=== PATIENT | male | born 1960 | race Caucasian/White ===

== ENCOUNTER 2020-09-21 18:55 | Emergency (ER) | payer OTHER ==
[~2020-09-21] VITALS: Ht 190.5 cm; Wt 87.9 kg
[2020-09-21] MEDS ORDERED: ASPI81TA26 PO (19:31)
[2020-09-21] MEDS ORDERED: METO37.5 PO (19:31)
[2020-09-21] MEDS ORDERED: CRES20TA2 PO (19:31)
[2020-09-21] MEDS ORDERED: ISOS30TA4 PO (19:31)
[2020-09-21] MEDS ORDERED: NS 1,000 ML IV SCH (19:38)
[2020-09-21] MEDS ORDERED: ASPIRIN 81 MG CHEW TABLET PO ONE (19:45)
[2020-09-21] MEDS ORDERED: NITROGLYCERIN 0.4 MG SUBL TABLET SL PRN (19:45)
[2020-09-21 19:48] LABS: BASO % 0.2 % (0.0-1.0); EOS # 0.2 10^3/uL (0.0-0.5); EOS % 3.1 % (0.0-3.0); HEMATOCRIT 44.6 % (42.0-52.0); HEMOGLOBIN 14.8 g/dl (13.5-17.5); LYMPH # 1.8 10^3/uL (1.5-5.0); LYMPH % 34.2 % (24.0-44.0); MEAN CORPUSCULAR HEMOGLOBIN 30.1 pg (27.0-33.0); MEAN CORPUSCULAR HGB CONC 33.2 g/dl (32.0-36.5); MEAN CORPUSCULAR VOLUME 90.7 fl (80.0-96.0); MONO # 0.5 10^3/uL (0.0-0.8); MONO % 9.5 % (0.0-5.0); NEUTROPHILS # 2.7 10^3/uL (1.5-8.5); NEUTROPHILS % 52.8 % (36.0-66.0); PLATELET COUNT, AUTOMATED 168 10^3/uL (150-450); RED BLOOD COUNT 4.92 10^6/uL (4.30-6.10); WHITE BLOOD COUNT 5.2 10^3/uL (4.0-10.0)
[2020-09-21 19:50] VITALS: BP 125/76
[2020-09-21 19:52] LABS: INR 0.97; PROTHROMBIN TIME 13.1 SECONDS (12.5-14.3)
[2020-09-21 20:01] LABS: ALT/SGPT 65 U/L (12-78); BILIRUBIN,DIRECT 0.2 MG/DL (0.0-0.2); BILIRUBIN,TOTAL 0.5 MG/DL (0.2-1.0); BLOOD UREA NITROGEN 21 MG/DL (7-18); CALCIUM LEVEL 8.9 MG/DL (8.8-10.2); CARBON DIOXIDE LEVEL 29 MEQ/L (21-32); CHLORIDE LEVEL 103 MEQ/L (98-107); CK-MB VALUE MASS 1.1 NG/ML (<3.6); CPK CREATINE PHOSPHOKINASE 122 U/L (39-308); CREATININE FOR GFR 1.18 MG/DL (0.70-1.30); GLOMERULAR FILTRATION RATE > 60.0 (>49); GLUCOSE, FASTING 93 MG/DL (70-100); LIPASE 167 U/L (73-393); POTASSIUM SERUM 4.4 MEQ/L (3.5-5.1); SODIUM LEVEL 138 MEQ/L (136-145); TOTAL PROTEIN 7.3 GM/DL (6.4-8.2); TROPONIN I < 0.02 NG/ML (< 0.10)
--- NOTE | 2020-09-21 20:55 | REP ---
INDICATION: CHEST PAIN COMPARISON: None. TECHNIQUE: Portable AP view of the chest FINDINGS: The mediastinum and cardiac silhouette are stable and within normal limits for portable technique. The lung greenberg are clear without acute consolidation, effusion, or pneumothorax. Skeletal structures are intact. IMPRESSION: No acute cardiopulmonary process appreciated. <Electronically signed by Helio Payne > 09/21/20 [id number]
[2020-09-21] MEDS ORDERED: PEPC1TAB5 PO (22:59)
[2020-09-21 23:00] VITALS: BP 136/88
--- NOTE | 2020-09-22 07:38 | ECGEPIP ---
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
--- NOTE | 2020-09-22 07:39 | ECGEPIP ---
[facility] - ED Test Date: 2020-09-21 Pat Name: MEGHAN ROJAS Department: Room: - Gender: Male Cargo Services Coordinator: EDWIN : 1960 Requested By: CARMINE TOBAR Order Number: [id number] Reading MD: Jess Early Measurements Intervals [place] Rate: 61 P: 29 MS: 179 QRS: 63 QRSD: 89 T: 31 QT: 429 QTc: 433 Interpretive Statements SINUS RHYTHM SIMILAR 09/21/20 Electronically Signed on 09-22-2020 7:39:31 EST by Jess Early
== END 2020-09-21 23:09 | disposition home or self-care (01) ==
LOC: M ED 18:55
DX: R07.89 Other chest pain (principal); I10 Essential (primary) hypertension; E78.5 Hyperlipidemia, unspecified; Z79.899 Other long term (current) drug therapy; Z79.82 Long term (current) use of aspirin; Z95.5 Presence of coronary angioplasty implant and graft